=== PATIENT | male | born 1955 | race Caucasian/White ===

== ENCOUNTER → 2016-11-21 | Outpatient (CLI) | payer MEDICARE, BC ==
[2016-11-21 20:47] LABS: Blood Urea Nitrogen 20 mg/dL (9-20); Non-African American GFR(MDRD) >60 (>60 ml/min/1.73 sqM)
--- NOTE | 2016-11-21 23:49 | MR ---
EXAMINATION TYPE: MR lumbar spine wo/w con DATE OF EXAM: 11/21/2016 COMPARISON: 10/14/2014 HISTORY: Low back pain, Muscle weakness TECHNIQUE: Multiplanar, multisequence images of the lumbar spine were acquired utilizing 10 mL intravenous Gadav ist gadolinium contrast. The vertebra have normal alignment. There is metal artifact from posterior fusion surgery at L4 L5 S1 . There is narrowing of the disc spaces from L4 to S1. Detail is limited by the metal artifact. There are small posterior disc herniations at L2-3 L3-4. I see no evidence of spinal stenosis. There is no lumbar paraspinal mass. I see no focal bone destruction. There is also small posterior disc herniati on at L5-S1. I see no pathologic enhancement. IMPRESSION: There is multilevel posterior fusion surgery that is new compared to last exam. No spinal stenosis. S mall posterior disc herniations as above. No spinal stenosis. I see no complicating process. No adver se change compared to old exam.
== END | disposition home or self-care (01) ==
LOC: RADMRIMAIN 20:05
PROVIDERS: ATTEND Orthopaedic Surgery Orthopaedic Surgery of the Spine
DX: M51.26 Other intervertebral disc displacement, lumbar region (principal); E11.9 Type 2 diabetes mellitus without complications; K44.9 Diaphragmatic hernia without obstruction or gangrene; Z98.1 Arthrodesis status; Z48.89 Encounter for other specified surgical aftercare
CPT/HCPCS: 82565; 84520; 72158; 36415; A9581

== ENCOUNTER → 2018-05-29 | Outpatient (CLI) | payer MEDICARE, BC ==
--- NOTE | 2018-05-29 19:31 | MR ---
MR thoracic spine without contrast HISTORY: Post laminectomy syndrome Multiplanar multisequence imaging obtained through the thoracic spine Thoracic vertebral bodies show preserved height and alignment. There is a spinal curvature. No eviden t spinal stenosis, foraminal encroachment. Facet arthropathy changes are present at the lower lumbar spine causing minimal posterior lateral mass effect on the thecal sac. Thoracic cord signal is normal . No evident disc herniation, minimal disc bulge noted at T11-12 causing only slight effacement of th e anterior thecal sac. Multilevel Schmorl's node formation is present. Loss of disc height and signal at intervertebral levels with associated spondylosis compatible with disc desiccation and mild degen erative disc disease. No paraspinal mass. : Thoracic scoliosis. Mild degenerative disc disease.
== END | disposition home or self-care (01) ==
LOC: RADMRIMAIN 16:47
PROVIDERS: ATTEND Neurological Surgery
DX: M51.34 Other intervertebral disc degeneration, thoracic region (principal); M41.84 Other forms of scoliosis, thoracic region
CPT/HCPCS: 72146

== ENCOUNTER 2021-11-23 07:45 | Outpatient (CLI) | payer MEDICARE, BC ==
[2021-11-23] MEDS ORDERED: diazePAM 5 MG TAB PO PRN (08:38)
[2021-11-23 08:39] LABS: Glucose,Whole Blood 163 mg/dL (70-110)
[2021-11-23 08:47] VITALS: TEMP 97.9
[2021-11-23] MEDS ORDERED: HYDROcodone/APAP 10-325MG 1 EACH TAB PO PRN (09:35)
--- NOTE | 2021-11-23 10:16 | CT ---
EXAMINATION TYPE: CT lumbar spine w con DATE OF EXAM: 11/23/2021 COMPARISON: MRI lumbar spine 2017 HISTORY: low back pain CT DLP: 1022 mGycm Automated exposure control for dose reduction was used. CONTRAST: CT scan of the lumbar is performed after intrathecal injection of 10 mL of Isovue M200. Enhanced CT of the lumbar spine was performed. Bone and soft tissue window settings are submitted as well as coronal and sagittal reconstructions. There are 5 lumbar-type vertebra identified. There a posterior interpedicular rods and screws noted t ransfixing L4-S1 levels. Metallic disc material at these levels is present. There is slight grade 1 r etrolisthesis along posterior vertebral body margin of L3 on L4 redemonstrated. Severe disc space edwin rowing with endplate sclerosis and vacuum disc phenomenon at L3-L4 level is again seen. Moderate disc space narrowing with vacuum disc phenomenon at L1-L2 and L2-L3 levels is redemonstrated. Stable slig ht grade 1 retrolisthesis L2 on L3. Successful intrathecal contrast injection redemonstrated. Spinal canal widely patent. Conus medullaris ends at mid L1 level similar to prior MRI. Axial images show T12-L1 and L1-L2 levels appear within normal limits. Slight spondylolisthesis prese nt at L2-L3 level. Axial images at L3-L4 level show spondylolisthesis with posterior spur effacing the anterior thecal s ac seen in both vaginal measures 30. This has similar appearance to prior MRI. [id number] bilat eral neural foraminal narrowing remains present. Some transverse narrowing of spinal canal coronal im age 36 noted. Axial images at L4-L5 and L5-S1 levels show posterior surgical change and artificial disc material. S josie canal fairly widely patent at these levels. Mild to moderate right-sided neural foraminal narro wing at these levels is present. Left sided neural foramina are patent. Spinous process resection at L5 level is redemonstrated. Mild calcified plaque and overlying abdominal aorta extends into the iliac branch vessels. Left poste rior stimulator device is partially imaged. IMPRESSION: Postsurgical changes L4-S1 level redemonstrated with stable and satisfactory alignment. S pondylolisthesis and degenerative change greatest at L3-L4 level is noted as detailed above.
[2021-11-23 10:24] VITALS: RESP 16
[2021-11-23 13:01] VITALS: BP 144/92; PULSE 72
--- NOTE | 2021-11-23 16:21 | FL ---
EXAMINATION TYPE: FL myelogram lumbosacral DATE OF EXAM: 11/23/2021 COMPARISON: MRI lumbar spine November 21, 2016 HISTORY: Low back pain. History of prior surgery 2016. TECHNIQUE: Fluoroscopic assisted myelogram. A total of 70 seconds fluoroscopic time utilized during p rocedure. 4 spot images saved to PACS. Informed consent was obtained and all the patient's questions were answered. Postsurgical change L4- S1 levels is identified. Prior MRI reviewed shows spinous process resection at L5 level with wide spi nal canal. This level was targeted. The L5 level was localized under fluoroscopy. Standard sterile t echnique was utilized as well as appropriate local anesthesia 1% Lidocaine . Spinal needle was intro duced into the thecal sac under fluoroscopic guidance and 10 mL's of Isovue-M 200 was injected. The patient tolerated the procedure well and left the department in stable condition. CT myelography is to follow. This report is dictated separately. Left-sided spinal stimulator device is partially image d. Images saved show successful injection of contrast into the spinal canal. Vital signs monitored before during and after procedure. Patient was kept in the hospital for short s suhas after the procedure and CT and then discharged home in stable and satisfactory condition. IMPRESSION: Successful myelography lumbar spine.
== END 2021-11-23 12:46 | disposition home or self-care (01) ==
LOC: RADPROMAIN 07:45
PROVIDERS: ATTEND Orthopaedic Surgery Orthopaedic Surgery of the Spine
DX: M43.16 Spondylolisthesis, lumbar region (principal); M47.816 Spondylosis without myelopathy or radiculopathy, lumbar region
CPT/HCPCS: 62304; 72132; J2001; Q9966

== ENCOUNTER → 2022-01-21 | Outpatient (CLI) | payer MEDICARE, BC ==
[2022-01-21 14:05] LABS: INR 0.9 (<1.2); Partial Thromboplastin Time 22.4 sec (22.0-30.0); Prothrombin Time 10.4 sec (9.0-12.0)
--- NOTE | 2022-01-21 14:18 | XR ---
EXAMINATION TYPE: XR chest 2V DATE OF EXAM: 01/21/2022 COMPARISON: 2 view chest x-ray performed on September 08, 2015 HISTORY: 66-year-old male with stenosis presents for preoperative chest x-ray. TECHNIQUE: Frontal and lateral views of the chest are obtained. FINDINGS: There is no focal air space opacity, pleural effusion, or pneumothorax seen. The cardiac silhouette size is within normal limits. The osseous structures are intact. Stimulator wires are n oted within the mid thoracic spine region. IMPRESSION: No acute cardiopulmonary process.
[2022-01-21 18:43] LABS: Appearance,Urine Clear (Clear); Bilirubin,Urine Negative (Negative); Blood,Urine Negative (Negative); Color,Urine Yellow (Yellow); Ketones,Urine Negative (Negative); Nitrite,Urine Negative (Negative); PH, Urine 5.5 (5.0-8.0); Specific Gravity,Urine 1.015 (1.001-1.030); Urobilinogen,Urine 0.2 (0.2,1.0)
[2022-01-21 19:11] LABS: Anion Gap 11.4 mmol/L (10.00-18.00); BUN/Creat Ratio 11.83 Ratio (12.00-20.00); Blood Urea Nitrogen 11.5 mg/dL (9.0-27.0); Calcium 9.1 mg/dL (8.7-10.3); Carbon Dioxide 21.3 mmol/L (20.0-27.5); Potassium 5.6 mmol/L (3.5-5.5)
[2022-01-21 19:30] LABS: Basophils # (A) 0.03 X 10*3/uL (0.00-0.10); Basophils % (A) 0.5 %; Eosinophils # (A) 0.19 X 10*3/uL (0.04-0.35); Eosinophils % (A) 3.4 %; HCT 18.9 % (39.6-50.0); HGB 5.2 g/dL (13.0-17.0); Immature Grans, Automated 0.7 %; Lymphocytes # (A) 1.24 X 10*3/uL (0.90-5.00); Lymphocytes % (A) 22.5 %; MCH 20.1 pg (27.0-32.0); MCHC 27.5 g/dL (32.0-37.0); Mean Platelet Volume 9.5 fL (9.5-12.2); Monocytes # (A) 0.73 X 10*3/uL (0.20-1.00); Monocytes % (A) 13.2 %; NRBC Per 100 WBC 0.4 /100 WBCS (0.0-0.0); Neutrophils # (A) 3.28 X 10*3/uL (1.80-7.70); Neutrophils % (A) 59.7 %; Platelet Count 209 X 10*3/uL (140-440); RBC 2.59 X 10*6/uL (4.40-5.60); RDW 19.8 % (11.5-14.5); WBC 5.51 X 10*3/uL (4.50-10.00)
[2022-01-21 19:31] LABS: Hypochromasia (M) 3+; Microcytosis (M) 2+
== END | disposition home or self-care (01) ==
LOC: LABPAT 12:48
PROVIDERS: ATTEND Orthopaedic Surgery Orthopaedic Surgery of the Spine
DX: Z01.818 Encounter for other preprocedural examination (principal); M48.00 Spinal stenosis, site unspecified
CPT/HCPCS: 71046; 80048; 81003; 85025; 85610; 85730; 87070; 93005

== ENCOUNTER → 2022-01-21 | Outpatient (CLI) | payer MEDICARE, BC | END | disposition home or self-care (01) | LOC: LABWHC1 12:55 | PROVIDERS: ATTEND Family Medicine | DX: E11.9 Type 2 diabetes mellitus without complications (principal) | CPT/HCPCS: 36415; 83036 ==

== ENCOUNTER → 2022-11-11 | Outpatient (CLI) | payer MEDICARE, BC ==
[2022-11-11 09:57] LABS: Appearance,Urine Clear (Clear); Bilirubin,Urine Negative (Negative); Blood,Urine Negative (Negative); Color,Urine Colorless; Glucose,Urine (UA) Negative (Negative); Ketones,Urine Negative (Negative); Leukocyte Esterase,Urine Negative (Negative); Nitrite,Urine Negative (Negative); PH, Urine 5.5 (5.0-8.0); Protein,Urine Negative (Negative); Specific Gravity,Urine 1.011 (1.001-1.035); Urobilinogen,Urine <2.0 mg/dL (<2.0)
[2022-11-11 10:08] LABS: INR 0.9 (<1.2); Partial Thromboplastin Time 26.6 sec (22.0-30.0)
--- NOTE | 2022-11-11 10:25 | XR ---
EXAMINATION TYPE: XR chest 2V DATE OF EXAM: 11/11/2022 10:05 AM COMPARISON: Chest radiographs from 01/21/2022 TECHNIQUE: XR chest 2V Frontal and lateral views of the chest. CLINICAL INDICATION:Male, 67 years old with history of Z01.818; FINDINGS: Lungs/Pleura: There is no evidence of pleural effusion, focal consolidation, or pneumothorax. Pulmonary vascularity: Unremarkable. Heart/mediastinum: Cardiomediastinal silhouette is unremarkable. Musculoskeletal: No acute osseous pathology. Stimulator leads identified in the midthoracic spine. IMPRESSION: No acute cardiopulmonary disease/process. No significant change from prior examination.
[2022-11-11 14:10] LABS: Basophils # (A) 0.03 X 10*3/uL (0.00-0.10); Basophils % (A) 0.6 %; Eosinophils # (A) 0.12 X 10*3/uL (0.04-0.35); Eosinophils % (A) 2.4 %; HCT 32.6 % (39.6-50.0); HGB 10.4 d/dL (13.0-17.0); Lymphocytes # (A) 1.12 X 10*3/uL (0.90-5.00); Lymphocytes % (A) 22.2 %; MCH 27.1 pg (27.0-32.0); MCHC 31.9 d/dL (32.0-37.0); MCV 84.9 FL (80.0-97.0); Monocytes % (A) 11.9 %; NRBC Per 100 WBC 0 X 10*3/uL (0.00-0.01); Neutrophils % (A) 61.5 %; Platelet Count 247 X 10*3/uL (140-440); RBC 3.84 X 10*6/uL (4.40-5.60); WBC 5.04 X 10*3/uL (4.50-10.00)
[2022-11-11 14:31] LABS: BUN/Creat Ratio 11.67 Ratio (12.00-20.00); Blood Urea Nitrogen 10.5 mg/dL (9.0-27.0); Calcium 9.6 mg/dL (8.7-10.3); Carbon Dioxide 22.4 mmol/L (21.6-31.8); Chloride 96 mmol/L (96-109); Glucose 169 mg/dL (70-110); Potassium 5.1 mmol/L (3.5-5.5); Sodium 131 mmol/L (135-145)
== END | disposition home or self-care (01) ==
LOC: LABWHC1 08:22
PROVIDERS: ATTEND Orthopaedic Surgery Orthopaedic Surgery of the Spine
DX: Z01.818 Encounter for other preprocedural examination (principal); M41.50 Other secondary scoliosis, site unspecified
CPT/HCPCS: 36415; 71046; 80048; 81003; 85025; 85610; 85730; 87070; 93005